=== PATIENT | female | born 1935 | race American Indian/Alaskan Native ===

== ENCOUNTER 2017-10-17 16:03 | Emergency (ER) | payer MEDICARE ==
--- NOTE | 2017-10-17 19:06 | Emergency Department Report ---
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 She was unresponsive. A couple of seconds after that she passed out and she remained passed out only for a few seconds then back to normal but vomited once. At the ER she says she feels "pretty good".) - Related Data Allergies/Adverse Reactions: Allergies No Known Allergies Allergy (Unverified 10/17/17 17:21) ED Review of Systems ROS: Stated complaint: SYNCOPE Other details as noted in HPI Constitutional: denies: chills, fever Eyes: denies: eye pain, eye discharge, vision change ENT: denies: ear pain, throat pain Respiratory: denies: cough, shortness of breath, wheezing Cardiovascular: denies: chest pain, palpitations Endocrine: no symptoms reported Gastrointestinal: vomiting. denies: abdominal pain, nausea, diarrhea Genitourinary: denies: urgency, dysuria, discharge Musculoskeletal: denies: back pain, joint swelling, arthralgia Skin: denies: rash, lesions Neurological: denies: headache, weakness, paresthesias Psychiatric: denies: anxiety, depression Hematological/Lymphatic: denies: easy bleeding, easy bruising ED Past Medical Hx - Past Medical History Previous Medical History?: Yes Hx Hypertension: Yes Hx Congestive Heart Failure: Yes Hx Renal Disease: Yes - Social History Smoking Status: Never Smoker Substance Use Type: None ED Physical Exam - General Limitations: Physical Limitation General appearance: alert, in no apparent distress - Head Head exam: Present: atraumatic, normocephalic - Eye Eye exam: Present: normal appearance - ENT ENT exam: Present: mucous membranes moist - Neck Neck exam: Present: normal inspection - Respiratory Respiratory exam: Present: normal lung sounds bilaterally. Absent: respiratory distress - Cardiovascular Cardiovascular Exam: Present: regular rate, normal rhythm. Absent: systolic murmur, diastolic murmur, rubs, gallop - GI/Abdominal GI/Abdominal exam: Present: soft, normal bowel sounds - Extremities Exam Extremities exam: Present: normal inspection - Back Exam Back exam: Present: normal inspection - Neurological Exam Neurological exam: Present: alert, oriented X3 - Psychiatric Psychiatric exam: Present: normal affect, normal mood - Skin Skin exam: Present: warm, dry, intact, normal color. Absent: rash ED Course Vital Signs 10/17/17 10/17/17 10/17/17 16:49 16:56 17:00 Temperature 98.7 F Pulse Rate 59 L 61 60 Respiratory 22 20 21 Rate Blood Pressure 145/56 146/56 Blood Pressure [Left] O2 Sat by Pulse 98 Oximetry 10/17/17 10/17/17 10/17/17 17:12 17:15 17:20 Temperature 98.7 F Pulse Rate 61 61 Respiratory 20 21 20 Rate Blood Pressure 134/53 Blood Pressure 145/56 [Left] O2 Sat by Pulse 100 98 Oximetry 10/17/17 10/17/17 10/17/17 17:30 17:45 18:00 Temperature Pulse Rate 59 L 59 L 58 L Respiratory 19 15 19 Rate Blood Pressure 143/50 144/51 148/53 Blood Pressure [Left] O2 Sat by Pulse Oximetry 10/17/17 10/17/17 10/17/17 18:15 18:30 18:46 Temperature Pulse Rate 59 L 62 64 Respiratory 16 16 14 Rate Blood Pressure 153/58 144/59 157/55 Blood Pressure [Left] O2 Sat by Pulse Oximetry 10/17/17 10/17/17 10/17/17 19:00 19:16 19:45 Temperature Pulse Rate 60 Respiratory 13 Rate Blood Pressure 140/41 140/66 152/99 Blood Pressure [Left] O2 Sat by Pulse Oximetry 10/17/17 20:04 Temperature 98.7 F Pulse Rate 60 Respiratory Rate Blood Pressure Blood Pressure 145/56 [Left] O2 Sat by Pulse Oximetry ED Medical Decision Making - Lab Data Result diagrams: 10/17/17 19:00 10/17/17 19:00 Critical care attestation.: If time is entered above; I have spent that time in minutes in the direct care of this critically ill patient, excluding procedure time. ED Disposition Clinical Impression: Syncope Qualifiers: Syncope type: unspecified Qualified Code(s): R55 - Syncope and collapse Disposition: DC-01 TO HOME OR SELFCARE Is pt being admited?: No Does the pt Need Aspirin: No Condition: Good Instructions: Syncope (ED) Referrals: PRIMARY CARE, [Primary Care Provider] - 3-5 Days Time of Disposition: 20:12
[2017-10-17 19:08] LABS: Basophils % (Auto) 0.6 % (0.0-1.8); Eosinophils % (Auto) 0.8 % (0.0-4.3); Hematocrit 32.7 % (30.3-42.9); Hemoglobin 10.5 gm/dl (10.1-14.3); Lymphocytes # (Auto) 0.9 K/mm3 (1.2-5.4); Mean Corpuscular HGB Conc 32 % (30-34); Mean Corpuscular Hemoglobin 29 pg (28-32); Mean Corpuscular Volume 90 fl (79-97); Monocytes # (Auto) 0.3 K/mm3 (0.0-0.8); Monocytes % (Auto) 6.4 % (0.0-7.3); Platelet Count 128 K/mm3 (140-440); Red Blood Count 3.63 M/mm3 (3.65-5.03); Red Cell Distribution Width 16.2 % (13.2-15.2)
[2017-10-17 19:34] LABS: Alanine Aminotransferase 24 units/L (7-56); Albumin 3.6 g/dL (3.9-5); BUN/Creatinine Ratio 20; Blood Urea Nitrogen 46 mg/dL (7-17); Calcium 9.2 mg/dL (8.4-10.2); Hemolysis Index 30
--- NOTE | 2017-10-17 20:03 | Cat Scan Report ---
FINAL REPORT EXAM: CT HEAD/BRAIN WO CON HISTORY: Syncope TECHNIQUE: Contiguous axial images of the head were obtained without the use of intravenous contrast. PRIORS: None. FINDINGS: The cerebral hemispheres are without focal lesions. There is no evidence of acute infarct or intracranial hemorrhage. There is no mass lesion or mass effect. There are no abnormal extra-axial fluid collections. The ventricles and sulci are prominent consistent with generalized loss of brain substance, appropriate for age. There is deep white matter lucency consistent with fairly advanced chronic microvascular ischemic disease. The visualized skull and orbits are unremarkable. The visualized paranasal sinuses are clear. IMPRESSION: 1. No evidence of acute infarct or intracranial hemorrhage. 2. White matter lucency consistent with fairly advanced chronic microvascular ischemic disease.
[2017-10-17 21:30] VITALS: BP 145/56
== END 2017-10-17 21:30 | disposition home or self-care (01) ==
LOC: ED 16:03
DX: R55 Syncope and collapse (principal); I11.0 Hypertensive heart disease with heart failure; I50.9 Heart failure, unspecified
CPT/HCPCS: 36415; 70450; 80053; 83735; 83880; 84484; 85025; 93005; 93010; 99284